=== PATIENT | female | born 1985 | race Caucasian/White ===

== ENCOUNTER 2016-10-29 16:07 | Observation (INO) ==
[2016-10-29] MEDS ORDERED: Ondansetron 4 MG/2 ML VIAL IVP ONE (16:11)
--- NOTE | 2016-10-29 16:27 | Emergency Department Note ---
Disposition Clinical Impression: Chest pain Qualifiers: Chest pain type: unspecified Qualified Code(s): R07.9 - Chest pain, unspecified Disposition: Admitted As Inpatient Condition: Good Time of Disposition: 18:47 General Adult HPI - General Chief complaint: ED Chest Pain Stated complaint: chest pressure Time Seen by Provider: 10/29/16 16:09 Source: patient, EMS Limitations: no limitations Nursing Notes Reviewed: Yes Vital Signs Reviewed: Yes - History of Present Illness HPI Narrative: This is a 30-year-old female with a past medical history of [id number] hypertension, thyroiditis, Type 1 Diabetes and the beginning of a new workup for possible pheochromocytoma. She reports to the emergency department today because she felt chest pressure while she was at home. She states that over the past 2 years she has had episodes of hypertensive spikes, hot flashes, headaches since the of her last son. She states that the symptoms have worsened significantly over the last 2 weeks which prompted her primary care physician to begin a workup for pheochromocytoma. However, today she had her worst episode. She states that this is the first time she has had chest pain from this. Pain Scale: 5 - Related Data Home Medications Medication Instructions Recorded Confirmed Levothyroxine Sodium 88 mcg PO 0630 10/29/16 10/29/16 Metformin HCl [Metformin HCl ER] 500 mg PO BID 10/29/16 10/29/16 Subcutaneous Insulin Pump [T:Slim] 30 - 80 unit MC DAILY PRN 10/29/16 10/29/16 Allergies Allergy/AdvReac Type Severity Reaction Status Date / Time Penicillins [PCN] Allergy Mild See Verified 10/31/16 04:26 Comments Cephalosporins Allergy Swelling Verified 10/29/16 19:06 of Lip/Tongue/Throat clindamycin Allergy Nausea Verified 10/29/16 19:06 doxycycline Allergy Nausea Verified 10/29/16 19:06 acetaminophen [From Tylenol] AdvReac See Verified 10/31/16 04:26 Comments Constitutional: Reports: weakness. 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 She seems very uncomfortable. - General Limitations: no limitations General appearance: alert - Head Head exam: atraumatic, normocephalic - Eye Eye exam: Present: EOMI. Absent: scleral icterus, conjunctival injection - ENT ENT exam: mucous membranes dry - Neck Neck exam: Present: trachea midline. Absent: tenderness, meningismus - Chest Chest inspection: Present: symmetric chest wall rise. Absent: tenderness, rash - Respiratory Respiratory exam: Present: normal lung sounds bilaterally. Absent: respiratory distress, wheezes, stridor - Cardiovascular Cardiovascular exam: Present: tachycardia (Went from a normal heart rate to tachycardia) - Abdominal Exam Abdominal exam: Present: soft, tenderness Abdominal tenderness: Present: diffuse, mild - Skin Skin exam: Present: warm, dry, intact Course - Reevaluation(s) Reevaluation #1: This is a 30-year-old female who presents to the emergency department with an episode of chest pain, flushing, hypertensive despite, and syncope. She was in the initial stages of getting a workup for pheochromocytoma. At this time, we performed an EKG, chest x-ray, obtained a CBC and BMP. Time: 17:13 Reevaluation #2: After speaking with the patient regarding whether to have her pheochromocytoma workup done outpatient, she states that she is "scared to go home". She prefers to be transferred to [facility] and be seen by her puller machine Dr. Sumanth Hernandez. I called the [facility] transfer center and was informed that they were on diversion and could not accept any patients. I spoke on the phone with the hospitalist there who stated that he recommended I keep her here at our facility overnight for observation. He did say that hopefully by tomorrow morning there will be a bed taken open up for her and that she could possibly be transferred at that time. I explained the situation with the patient, and she was satisfied with staying here tonight for observation. She is currently not having the blood pressure spikes, her blood pressure was 101/80, heart rate is 83, and she is currently not having any flushing. I think it is reasonable that she be observed in the hospital overnight, and the hospitalist Dr. Huerta and she agrees to the plan. Time: 18:47 Vital Signs Temperature 98.9 F 10/29/16 16:09 Pulse Rate 87 10/29/16 16:09 Respiratory Rate 20 10/29/16 16:09 Blood Pressure 134/103 10/29/16 16:09 O2 Sat by Pulse Oximetry 99 10/29/16 16:09 Temperature 98.5 F 10/31/16 11:55 Pulse Rate 65 10/31/16 11:55 Respiratory Rate 16 10/31/16 11:55 Blood Pressure 101/66 10/31/16 11:55 O2 Sat by Pulse Oximetry 98 10/31/16 11:55 Oxygen Delivery Oxygen Delivery Room Air Medical Decision Making - Lab Data Result diagrams: 10/30/16 03:54 10/30/16 03:54 Lab Results 10/29/16 10/29/16 10/29/16 Range/Units 17:06 17:06 17:06 WBC 10.2 (4.3-11.1) K/mcL RBC 4.36 (3.82-4.97) M/mcL Hgb 12.8 (11.5-15.4) g/dL Hct 37.9 (35.3-44.9) % MCV 86.9 (83.0-100.0) fL MCH 29.4 (28.0-33.3) pg MCHC 33.8 (31.6-35.5) g/dL RDW 12.7 (11.5-14.5) % Plt Count 338 (140-400) K/mcL MPV 9.3 L (9.4-12.4) fL Immature Gran % 0.3 (0-4) % Seg Neutrophils % 72.4 % Lymphocytes % 20.3 % Monocytes % 5.5 % Eosinophils % 1.1 % Basophils % 0.4 % Neutrophils # 7.4 (1.6-8.9) K/mcL Lymphocytes # 2.1 (0.6-4.6) K/mcL Monocytes # 0.6 (0.0-1.3) K/mcL Eosinophils # 0.1 (0.0-0.6) K/mcL Basophils # 0.0 (0.0-0.2) K/mcL Immature Plt Fraction 2.2 (1.1-6.1) % Sodium 141 (136-145) mEq/L Potassium 3.8 (3.5-4.5) mEq/L Chloride 108 (98-109) mEq/L Carbon Dioxide 26 (19-29) mEq/L BUN 11 (7-20) mg/dL Creatinine 0.84 (0.57-1.11) mg/dL Est GFR ( Amer) > 60 (> 60) Est GFR (Non-Af Amer) > 60 (> 60) BUN/Creatinine Ratio 13 (6-26) Glucose 97 (70-99) mg/dL Calculated Osmolality 291 (280-300) Calcium 9.9 (8.6-10.8) mg/dL Troponin I 0.00 (0-0.03) ng/mL - EKG Data EKG #1 EKG results narrative: 10/29/2016 16:15 Ventricular rate 87 bpm, SC interval 140 ms, QRS duration 83 ms, QT 342 ms, QTC 386 ms, normal axis Normal sinus rhythm with a ventricular rate of 87 bpm, there are no ST changes noted.
--- NOTE | 2016-10-29 17:08 | Emergency Department Note ---
START Narrative - START START: I examined this patient and my medical decision-making was reviewed with the PRINCIPAL RESEARCH ECONOMIST/PA/Advanced Practice Nurse/Resident Physician. I agree with the documented findings, disposition and treatment plan as described except to the extent set forth below. ED attending note: Patient seen with emergency medicine resident Dr REYES. We independently evaluated the patient. We independently had enuw-eo-rwyk contact with the patient. Please see a copy of his note for details of the history and physical, evaluation, management and disposition of this emergency Department patient. Briefly: A 22-year-old female insulin-dependent diabetic being cared for by the endocrine service the [facility] presents with a two-year history worsened over the past 14 days of headaches flushing chest pain palpitations. Patient is being worked up for suspected pheochromocytoma. She was about to give a urine metanephrine testing. When she had an episode today and cause recurrent by ambulance. Time when her blood pressure was elevated and her heart rate was up to about 133. However patient is currently asymptomatic at this time. Chest x-ray is otherwise negative and EKG shows no acute ischemic changes. Screening labs are being ordered. However patient and her at bedside state that they would like to be transferred to the [facility] for more definitive management. And we agreed. Awaiting results of labs and then initiate and follow through on transfer the [facility]. Disposition pending
[2016-10-29 17:14] LABS: Basophils % 0.4 %; Eosinophils # 0.1 K/mcL (0.0-0.6); Eosinophils % 1.1 %; Hematocrit 37.9 % (35.3-44.9); Hemoglobin 12.8 g/dL (11.5-15.4); Immature Granulocytes % 0.3 % (0-4); Immature Platelets 2.2 % (1.1-6.1); Lymphocytes # 2.1 K/mcL (0.6-4.6); Lymphocytes % 20.3 %; Mean Corpuscular HGB Conc 33.8 g/dL (31.6-35.5); Mean Corpuscular Hemoglobin 29.4 pg (28.0-33.3); Mean Corpuscular Volume 86.9 fL (83.0-100.0); Mean Platelet Volume 9.3 fL (9.4-12.4); Monocytes # 0.6 K/mcL (0.0-1.3); Monocytes % 5.5 %; Neutrophils # 7.4 K/mcL (1.6-8.9); Platelet Count 338 K/mcL (140-400); Red Blood Count 4.36 M/mcL (3.82-4.97); Red Cell Distribution Width 12.7 % (11.5-14.5); Segmented Neutrophils % 72.4 %
[2016-10-29 17:30] LABS: BUN/Creatinine Ratio 13 (6-26); Blood Urea Nitrogen 11 mg/dL (7-20); Calcium 9.9 mg/dL (8.6-10.8); Carbon Dioxide 26 mEq/L (19-29); Chloride 108 mEq/L (98-109); Glucose 97 mg/dL (70-99); Osmolality,Calculated 291 (280-300); Potassium 3.8 mEq/L (3.5-4.5); Sodium 141 mEq/L (136-145); eGFR For African Americans > 60 (> 60); eGFR For Non-African Americans > 60 (> 60)
--- NOTE | 2016-10-29 20:40 | Internal Med History&Physical ---
<PradipallaMina Vasquez - Last Filed: 10/29/16 20:37> Date of Encounter: 10/29/16 Time of Encounter: 19:30 Assessment and Plan (1) Syncope Current visit: Yes Status: Acute Mrs. bishop 22-year-old female had an episode of syncope after experiencing acute onset of left-sided crushing chest pain without radiation. She relates palpitations during this episode. She was standing and without stress at the time of this episode. She said that she had an immediate blackout and did not have any preceding visual symptoms or lightheadedness. She describes the recovery period as patchy and difficulty warming words but denies any abnormal body movements, biting of tongue or loss of bowel or bladder function. - She is currently being evaluated for a possible pheochromocytoma, with symptoms of occasional hypertension, diaphoresis, palpitations and migraine headaches. She has other risk factors including thyroid dysfunction, type 1 diabetes. - Significant family history of type 1 diabetes but no history of endocrine cancers in her family. Her possibilities for familial pheochromocytoma, MEN2 with the multiple other endocrine dysfunctions. - Patient states that she has an outpatient order for a 24-hour urine metanephrine and catecholamine tool kit. She follows up with an directional survey drafter at [facility] for her diabetes. For further workup should be best cared for with the continuity of her directional survey drafter, for evaluation and possible diagnosis of pheochromocytoma. - The patients syncopal episode would otherwise appear to be cardiac in nature given the acute onset with left-sided crushing chest pain and palpitations. There is possibility for arrhythmia that could be related to release of catecholamines or rhythm dysfunction. She has been stable on telemetry since admission and her troponin was 0.00. EKG demonstrates normal sinus rhythm, appropriate rate, axis and without ST elevation or depression. Chest x-ray does not demonstrate any acute process. Plan: - Continue cardiac monitoring - Troponins 2 - General medical floor - Patient will require follow-up with endocrinology. Qualifiers: Qualified Code(s): R55 - Syncope and collapse (2) Endocrine disorder, unspecified Current visit: Yes Status: Acute As discussed above. Currently undergoing evaluation for pheochromocytoma. (3) Type 1 diabetes Current visit: Yes Status: Acute Patient is type I diabetic who was diagnosed at the age of 17. She wears a insulin pump and has had difficulty in the last 2 weeks controlling her glucose levels. She states that she usually has pretty appropriate glucose control but has been spiking up into the 300s recently. She denies any changes to her insulin, dietary changes, illnesses or steroid use. Plan: -Continue insulin pump during inpatient care - Before meals and at bedtime glucose checks. Qualifiers: Diabetes mellitus complication status: without complication Qualified Code( s): E10.9 - Type 1 diabetes mellitus without complications (4) Hypothyroidism Current visit: Yes Status: Acute Known history of hypothyroidism, last TSH was elevated at 5.301 on 10/17/2016. Plan: - Continue his home dose levothyroxine. - Patient follows with directional survey drafter. Qualifiers: Hypothyroidism type: acquired Qualified Code(s): E03.9 - Hypothyroidism, unspecified Internal Medicine - H&P: HPI Chief complaint: passed out Admitted From: Emergency Dept Plans for Post Hospital Care: Home History of present illness: Ms. Bishop is a 30 year old female pmhx of type 1 diabetes, hypothyroidism, pregnancies 3 presented to the emergency department after passing out at home. She states that she was washing her dishes and was in her normal state of health without any stressful situations when she had crushing left-sided chest pain did not feel well with symptoms of nausea, palpitations, lightheadedness and then blacked out. The patient said this is witnessed by her who then called EMS who brought her to the emergency department. She states that she has interrupted memory of the events that took place after she fell. She mentions her described the period of time she was out with her eyes open with a glazed look not very responsive and then she came to making incoherent sentences. She does not remember much between the time she blacked out in the time she arrived at the emergency department. She is unsure if she hit her head, had any abnormal movements during the blackout episode. She denies biting her tongue or having loss of bladder function. She says over the last couple of years she has had headaches, occasional episodes of palpitations , occasional elevated blood pressures that were sporadic in nature. She also has the feeling of going through hot flashes where she becomes very diaphoretic. They have been intermittent over the last 2 years but more present in the last 14 days. The left-sided chest pain is new and occurred today prior to the episode of blacking out. She denies chest pain radiating to her neck and jaw or arm. She did not have any time to do any activity to find out if it exacerbated with activity. And she does not take any other medications for this chest pain. She denies ever having symptoms like this prior. She does say she has thyroid pains when she has hyperthyroid on her levothyroxine and she feels the pain in her right supraclavicular area. She was diagnosed with type 1 diabetes at the age of 17 and said that her mother was recently diagnosed with type 1 diabetes. They had genetic testing done on her daughter who is also likely to be a type I diabetic in the near future. She denies any other family history of thyroid dysfunction, endocrine cancers. Her father does not have any diabetes, cancer or other concerning factors. She was recently seen at her primary care provider's office and there was concern that she may have symptoms of a pheochromocytoma. She has not had any CT imaging of the abdomen and pelvis or with focus of the adrenal glands yet. She was supposed to chart picker a 24-hour urine metanephrine and catecholamine testing cats but she did not do that this week. She says that currently she no longer has chest pain, palpitations, headaches, diaphoresis or nausea. Her had requested transfer to [facility] where her directional survey drafter's. She sees an directional survey drafter for her type 1 diabetes and management of her insulin pump. She was supposed to schedule appointments with her directional survey drafter but has yet to do so this week. Past Med Surg Social Fam HX - Past Medical History Medical history: diabetes, thyroid disease Psychiatric history: no psych history - Social History Smoking Status: Light tobacco smoker Smokeless Tobacco Status: No Alcohol use: none Drug use: none - Family History Mother Daughter Living Status: Still Living Hx Family Endocrine Disorder: Yes (Type 1 diabetes adult onset) Daughter Living Status: Still Living Hx Family Endocrine Disorder: Yes (Prediabetic) Internal Medicine - H&P: Meds Levothyroxine Sodium 88 mcg PO 0630 10/29/16 [History] Metformin HCl [Metformin HCl ER] 500 mg PO BID 10/29/16 [History] Subcutaneous Insulin Pump [T:Slim] 30 - 80 unit MC DAILY PRN 10/29/16 [History] Allergies Cephalosporins Allergy (Verified 10/29/16 19:06) Swelling of Lip/Tongue/Throat clindamycin Allergy (Verified 10/29/16 19:06) Nausea doxycycline Allergy (Verified 10/29/16 19:06) Nausea Penicillins [PCN] Allergy (Verified 10/29/16 19:06) Swelling of Lip/Tongue/Throat All Systems PM: A 10-system review of systems was performed and is negative for pertinent findings except as documented above in the HPI. - Constitutional Constitutional: excessive sweating, no chills, no fever(s), no night sweats - EENT Eyes: no blurry vision, no change in vision, no discharge, no pain, no photophobia Ears: no ear discharge, no ear pain, no tinnitus Nose, mouth and throat: no dysphagia, no nasal discharge, no neck pain, no sore throat - Cardiovascular Cardiovascular ROS IM: chest pain, diaphoresis, palpitations, no dyspnea, no lightheadedness, no syncope - Respiratory Respiratory: no cough, no dyspnea, no wheezing, no excessive phlegm production - Gastrointestinal Gastrointestinal: nausea, no abdominal pain, no diarrhea, no hematemesis, no hematochezia, no melena, no vomiting - Genitourinary Genitourinary: no change in urinary stream, no dysuria, no flank pain, no hematuria - Musculoskeletal Musculoskeletal ROS IM: no numbness, no tingling - Integumentary Integumentary IM: no rash, no unusual bruising - Neurological Neurological ROS: headache(s), no confusion, no convulsions, no focal weakness, no numbness, no tingling, no tremor(s) - Hematologic/Lymphatic Hematologic/Lymphatic: no easy bruising - Constitutional Vitals: Temp Pulse Resp BP Pulse Ox 98.1 F 58 12 122/74 94 10/29/16 18:59 10/29/16 18:59 10/29/16 18:59 10/29/16 18:59 10/29/16 18:59 Exam: General: Patient alert, awake, oriented 3, interactive, in no acute distress HEENT: Normocephalic, atraumatic, pupils equal reactive to light, nasal cavity patent and open septum median position, oral mucosa moist, uvula midline, neck supple trachea midline no palpable lymphadenopathy, no thyromegaly. Chest: Symmetric bilateral correlating with respiratory effort, effort nonlabored. Cardiac: Regular rate and rhythm, grade 2/6 systolic ejection murmur. no bruits appreciated bilateral carotids, Radial pulses 2+ bilateral, posterior tibial and dorsal pedal pulses 2+ bilateral. Respiratory: Clear to auscultation all lung morrow Abdomen: Soft, nontender, positive bowel sounds, no palpable masses appreciated on examination Extremities: Symmetric bilateral, bilateral lower extremities without erythema or edema patient moving all 4 extremities spontaneously. Neurologic: No focal deficits appreciated on examination. Face symmetric, muscle strength symmetric bilateral upper and lower extremities. Internal Med - H&P Results - Labs CBC & Chem 7: 10/29/16 17:06 10/29/16 17:06 <Johan Wynne - Last Filed: 10/29/16 23:31> Date of Encounter: 10/29/16 Time of Encounter: 21:30 Internal Medicine - H&P: HPI History of present illness: Ms. Bishop is a 30 year old female All Systems PM: A 10-system review of systems was performed and is negative for pertinent findings except as documented above in the HPI. - Constitutional Vitals: Temp Pulse Resp BP Pulse Ox 98.1 F 58 12 122/74 94 10/29/16 18:59 10/29/16 18:59 10/29/16 18:59 10/29/16 18:59 10/29/16 18:59 Internal Med - H&P Results - Labs CBC & Chem 7: 10/29/16 17:06 10/29/16 17:06 Labs: Cardiac Enzymes 10/29/16 Range/Units 21:50 Troponin I 0.00 (0-0.03) ng/mL - Attending Attestation I examined this patient and my medical decision-making was reviewed with the resident physician, Dr. Mccurdy. I agree with the documented history of present illness, review of systems, past medical, surgical social and family histories and examination findings, disposition and treatment plan as described above except to any changes set forth below. 30-year-old female patient with history of type 1 diabetes mellitus, hypothyroidism who presented to the ER with complaints of an episode of left- sided chest pain with palpitations and syncope. Patient has been having severely elevated blood pressure recently and was recommended to follow up with endocrinology for workup of pheochromocytoma. She does have symptoms of excessive diaphoresis, headaches and elevated blood pressure. Presently, Patient is feeling much better and her blood pressure has improved. On examination, patient is awake and alert. Oriented 3. Heart sounds were normal. Breath sounds are normal. No abdominal tenderness. Urine test is negative Syncope: We will monitor with telemetry. Trend troponins. We will get CT scan of the abdomen and also check urine for metanephrines and catecholamines. Diabetes mellitus type 1: patient uses insulin pump which will be continued. Monitor blood sugars closely.
[2016-10-29] MEDS ORDERED: Naloxone 0.4 MG/ML INJ IVP PRN (21:15)
[2016-10-29] MEDS ORDERED: Acetaminophen 325 MG TABLET PO PRN (21:15)
[2016-10-29 22:15] LABS: Magnesium 1.8 mg/dL (1.6-2.6); Phosphorous 3.5 mg/dL (2.3-4.7)
[2016-10-29] MEDS ORDERED: *HR* Dextrose 50 % in Water (Syg) 50 ML SYRINGE IVP PRN (22:46)
[2016-10-29] MEDS ORDERED: Dextrose Gel 15 GM PO PRN ×2 (22:46)
[2016-10-29] MEDS ORDERED: D5% in Water 1,000 ML IVC PRN (22:46)
[2016-10-29 23:07] LABS: Bilirubin,Urine Negative (Negative); Blood,Urine Negative (Negative); Clarity,Urine Clear (Clear); Color,Urine Yellow (Yellow); Glucose,Urine (UA) >=1000 mg/dL (Normal); Ketones,Urine Negative (Negative); Leukocyte Esterase,Urine Negative (Negative); Nitrite,Urine Negative (Negative); Protein,Urine Negative (Neg-Trace); Specific Gravity,Urine 1.027 (1.010-1.025); Urobilinogen,Urine Normal (Normal)
[2016-10-30] MEDS: Pantoprazole 40 MG VIAL IVP SCH ×2 (00:30→08:13)
[2016-10-30 04:56] LABS: Basophils # 0.1 K/mcL (0.0-0.2); Basophils % 0.5 %; Eosinophils # 0.1 K/mcL (0.0-0.6); Eosinophils % 1.3 %; Hematocrit 34.5 % (35.3-44.9); Hemoglobin 11.5 g/dL (11.5-15.4); Immature Granulocytes % 0.3 % (0-4); Lymphocytes # 2.7 K/mcL (0.6-4.6); Lymphocytes % 26.5 %; Mean Corpuscular HGB Conc 33.3 g/dL (31.6-35.5); Mean Corpuscular Hemoglobin 29.6 pg (28.0-33.3); Mean Corpuscular Volume 88.9 fL (83.0-100.0); Mean Platelet Volume 10.5 fL (9.4-12.4); Monocytes # 0.6 K/mcL (0.0-1.3); Monocytes % 5.9 %; Neutrophils # 6.8 K/mcL (1.6-8.9); Platelet Count 248 K/mcL (140-400); Red Blood Count 3.88 M/mcL (3.82-4.97); Red Cell Distribution Width 13.2 % (11.5-14.5); Segmented Neutrophils % 65.5 %
[2016-10-30 05:10] LABS: Alanine Aminotransferase 13 Units/L (0-55); Albumin 3.3 g/dL (3.5-5.0); Albumin/Globulin Ratio 1.2 (1.1-2.2); Alkaline Phosphatase 99 Units/L (38-126); Aspartate Amino Transferase 12 Units/L (5-34); BUN/Creatinine Ratio 14 (6-26); Bilirubin,Total 0.6 mg/dL (0.2-1.2); Blood Urea Nitrogen 12 mg/dL (7-20); Calcium 8.6 mg/dL (8.6-10.8); Carbon Dioxide 26 mEq/L (19-29); Chloride 106 mEq/L (98-109); Globulin 2.8 g/dL (2.4-3.5); Glucose 229 mg/dL (70-99); Osmolality,Calculated 289 (280-300); Potassium 4.1 mEq/L (3.5-4.5); Sodium 136 mEq/L (136-145); Total Protein 6.1 g/dL (6.0-8.3); eGFR For African Americans > 60 (> 60); eGFR For Non-African Americans > 60 (> 60)
--- NOTE | 2016-10-30 15:28 | Internal Med Progress Note ---
Date of Encounter: 10/30/16 Time of Encounter: 12:30 - Assessment and plan (1) Syncope Current Visit: Yes Status: Acute Assessment and plan: Unclear causation at this time. Earlier this morning, patient had an episode where she began to feel lightheaded and dizzy. She felt as if her heart rate was increased. She was laying down supine at that time and then she stated that she tried to make herself feel better by pacing around her room. Episode was approximately 10 minutes and self limiting without intervention. Unable to review telemetry-artifact noted. She had an unremarkable Holter monitor in June 2015. We will observe her overnight and monitor telemetry. She has been instructed to her call light and try to remain still if possible if she has another episode. Chest x-ray negative. Abdominal CT negative. Urinalysis negative. She is being worked up by her primary care provider for pheochromocytoma. We will observe her overnight and monitor her telemetry and her symptoms. She will need to follow-up with endocrinology outpatient. ITS Impressions Chest X-Ray 10/29/16 16:11 IMPRESSION: No acute process. D/ / Arnold Yun MD / Arnold Yun MD Interpreting Provider: Arnold Yun MD Abdomen CT 10/29/16 21:15 IMPRESSION: No adrenal nodule or evidence for acute process. D/ / Vineet Stovall MD / Vineet Stovall MD Interpreting Provider: Vineet Stovall MD (2) Palpitations Current Visit: Yes Status: Chronic Assessment and plan: Appears acute on chronic. In review for chart, patient had a Holter monitor in June 2015 that revealed normal sinus rhythm with rare PACs. No PVCs or arrhythmias noted. Patient had an episode right around noon that lasted approximately 10 minutes where she felt as if her heart was beating quickly and she got up and walked around the room. I have reviewed her telemetry from this timeframe and unfortunately it is mostly obscured with artifact. There are a few traces of normal sinus rhythm but it is essentially artifact. We will keep her on telemetry and monitor. 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. Also being worked up by her primary care provider for suspected pheochromocytoma which can have symptoms including headache, sweating, elevated heart rate, elevated blood pressure at times. Abdominal CT negative for any abnormalities. ITS Impressions Abdomen CT 10/29/16 21:15 IMPRESSION: No adrenal nodule or evidence for acute process. D/ / Vineet Stovall MD / Vineet Stovall MD Interpreting Provider: Vineet Stovall MD (4) Type 1 diabetes Current Visit: Yes Status: Chronic Assessment and plan: Appears well controlled, no recent A1c, will check with a.m. labs. Continue home insulin pump (5) Hypothyroidism Current Visit: Yes Status: Chronic Assessment and plan: TSH from 2 weeks ago slightly elevated, will recheck along with T3 and T4 Qualifiers: Hypothyroidism type: acquired Qualified Code(s): E03.9 - Hypothyroidism, unspecified - Subjective Interval history: Patient seen and examined. On examination, patient resting supine in bed with her eyes closed. Patient stating approximately 20 minutes prior to my presentation into the room that she was laying down and became severely lightheaded so she stood up and tried to walk around her room. She stated this episode lasted approximately 10 minutes and during this time, her heart rate was increased, she denied any sweating. She felt as if she was dizzy and felt as if the room was spinning. - Constitutional Vitals: Temp Pulse Resp BP Pulse Ox 97.8 F 65 16 122/76 99 10/30/16 11:01 10/30/16 11:01 10/30/16 11:01 10/30/16 11:01 10/30/16 11:01 General appearance: Present: A&O X 3, pleasant, no acute distress, answers questions appropriately - Head Head exam: Present: atraumatic, normocephalic - Eye Eye exam: Present: PERRL, conjuntiva pink, sclera anicteric Pupils: Present: PERRL - Neck Neck exam general surgery: Present: supple, trachea midline. Absent: lymphadenopathy - Respiratory Respiratory exam: Present: CTAB. Absent: accessory muscle use, rales, respiratory distress, rhonchi, wheezes - Cardiovascular Cardiovascular exam: Present: RRR, +S1, +S2. Absent: diastolic murmur, gallop, rubs, systolic murmur - GI/Abdominal GI/Abdominal exam: Present: normal bowel sounds, soft, no peritoneal signs. Absent: distended, tenderness - Extremities Exam Extremities exam: Present: warm, radial pulses palpable and symetrical. Absent : calf tenderness, cyanotic, pedal edema - Neurological Exam Neurological exam: Present: alert, CN II-XII intact, normal gait, oriented X3, no focal deficits, strengths equal and symetr throughout. Absent: pronater drift, facial droop, speech deficit - Skin Skin exam: Present: dry, intact, pallor, warm Internal Medicine: Result - Labs CBC & Chem 7: 10/30/16 03:54 10/30/16 03:54 Labs: Short CBC 10/30/16 Range/Units 03:54 WBC 10.3 (4.3-11.1) K/mcL Hgb 11.5 (11.5-15.4) g/dL Hct 34.5 L (35.3-44.9) % Plt Count 248 (140-400) K/mcL Neutrophils # 6.8 (1.6-8.9) K/mcL BMP 10/30/16 03:54 Sodium 136 Potassium 4.1 Chloride 106 Carbon Dioxide 26 BUN 12 Creatinine 0.85 Glucose 229 H Calcium 8.6 Cardiac Enzymes 10/29/16 10/30/16 Range/Units 21:50 03:54 Troponin I 0.00 0.00 (0-0.03) ng/mL Liver Function 10/30/16 Range/Units 03:54 Total Bilirubin 0.6 (0.2-1.2) mg/dL AST 12 (5-34) Units/L ALT 13 (0-55) Units/L Alkaline Phosphatase 99 (38-126) Units/L Albumin 3.3 L (3.5-5.0) g/dL Urine 10/29/16 Range/Units 22:35 Urine Color Yellow (Yellow) Urine Clarity Clear (Clear) Urine pH 6.0 (5.0-8.0) pH Units Ur Specific [place] 1.027 H (1.010-1.025) Urine Protein Negative (Neg-Trace) mg/dL Urine Glucose (UA) >=1000 H (Normal) mg/dL - Impressions Impressions Abdomen CT 10/29/16 21:15 IMPRESSION: No adrenal nodule or evidence for acute process. D/ / Vineet Stovall MD / Vineet Stovall MD Interpreting Provider: Vineet Stovall MD Consult Discharge Plan - Plan Referrals: Lazara Matthews CNP [Primary Care Provider] - 11/05/16 8:45 am (Nov 07 Appointment will be addressed at this time visit)
--- NOTE | 2016-10-30 17:42 | Electrocardiograph Report ---
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
[2016-10-31] MEDS ORDERED: Ibuprofen 400 MG TABLET PO PRN (04:05)
[2016-10-31 04:35] LABS: Hemoglobin A1C 7.4 %
[2016-10-31 05:02] LABS: Thyroid Stimulating Hormone 6.943 mcIU/mL (0.350-4.840); Triiodothyronine (T3) Free 2.02 pg/mL (1.71-3.71)
[2016-10-31] MEDS: Pantoprazole 40 MG VIAL IVP SCH (08:56)
[2016-10-31 12:00] VITALS: BP 101/66
--- NOTE | 2016-10-31 12:51 | Cardiology Consult Note ---
Date of Encounter: 10/31/16 Time of Encounter: 12:49 Assessment and Plan (1) Lightheadedness Current Visit: Yes Status: Acute 30 year old with lightheadedness. Tells me she is not sure if she passed out. No obvious cardiac etiology - TTE normal LV function, no significant valve issues. Of note, BP somewhat marginal. She reports symptoms occur with standing or periods of standing. ? component of orthostatic hypotension. We discussed importance of aggressive hydrartion with water/liberal sodium intake and risk factor modification. No arrhythmias noted, but we could consider outpatient Holter monitor. It does not appear that any further inpatient cardiac testing is necessary at this time. Please call if any questions or concerns. Discussion w patient/family: The assessment and plan as outlined above was discussed with the patient and/or family members who expressed understanding and agreement. All questions were answered. Thank you for involving us in the care of your patient. Please call with any questions. History of Present Illness Consult date: 10/31/16 Requesting physician: Janeth Mukherjee Consult reason: Lightheadedness Chief complaint: Lightheadedness History of present illness: Ms. Bishop is a 30 year old female with thyroid disease and DM I. Apparently, reported syncope prior to admission, but tells me she is unsure if she passed out. Reports intermittent episodes of tachycardia and lightheadedness at home. Occurs at rest, but seem to occur more often with standing or activity. No chest pain reported. Seems comfortable during our encounter. TTE - Normal LVEF, possible mild MV prolapse, mild MR. ECG - sinus rhythm. Telemetry - no arrhythmias. Past Med Surg Social Fam HX - Past Medical History Medical history: diabetes, thyroid disease Psychiatric history: no psych history - Social History Smoking Status: Light tobacco smoker Smokeless Tobacco Status: No Alcohol use: none Drug use: none - Family History Mother Daughter Living Status: Still Living Hx Family Endocrine Disorder: Yes (Type 1 diabetes adult onset) Daughter Living Status: Still Living Hx Family Endocrine Disorder: Yes (Prediabetic) Medications and Allergies Levothyroxine Sodium 88 mcg PO 0630 10/29/16 [History] Metformin HCl [Metformin HCl ER] 500 mg PO BID 10/29/16 [History] Subcutaneous Insulin Pump [T:Slim] 30 - 80 unit MC DAILY PRN 10/29/16 [History] Allergies Penicillins [PCN] Allergy (Mild, Verified 10/31/16 04:26) See Comments Cephalosporins Allergy (Verified 10/29/16 19:06) Swelling of Lip/Tongue/Throat clindamycin Allergy (Verified 10/29/16 19:06) Nausea doxycycline Allergy (Verified 10/29/16 19:06) Nausea acetaminophen [From Tylenol] Adverse Reaction (Verified 10/31/16 04:26) See Comments Patient stated that tylenol intereferes with her insulin pump readings. All Systems Review: A 10-system review of systems was performed and is negative for pertinent findings except as documented above in the HPI. - Constitutional Constitutional: headache(s) - Cardiovascular Cardiovascular: as per HPI, lightheadedness, palpitations Physical Examination Vital Signs, Last 4 Hours Temp Pulse Resp BP Pulse Ox 10/31/16 11:55 98.5 F 65 16 101/66 98 General: Conversant, No Apparent Distress HEENT: Atraumatic, Normocephaly, Mucus Membranes Moist Neck: No JVD, Normal carotid pulses Cardiac: Reg Rate and Rhythm, Normal S1 and S2, No Murmur Lungs: Normal Breath Sounds, No Wheeze, Rales, Rhonchi Neuro: Alert and responsive, No focal deficits noted Abdomen: Soft, Non-Tender Skin: No rashes noted on visualized skin Musculoskeletal: No Chest Wall Tenderness Extremities: No Clubbing, No Cyanosis, No Edema Results 10/30/16 03:54 10/30/16 03:54 Lab Results 10/31/16 03:55 TSH 6.943 H - Imaging and Cardiology Echo: report reviewed - EKG Interpretation EKG results cardiology: personally reviewed Consult Discharge Plan - Plan Referrals: Lazara Matthews CNP [Primary Care Provider] - 11/05/16 8:45 am (Nov 07 Appointment will be addressed at this time visit)
--- NOTE | 2016-10-31 13:58 | Electrocardiograph Report ---
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
--- NOTE | 2016-10-31 14:17 | Electrocardiograph Report ---
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
--- NOTE | 2016-10-31 14:48 | Discharge Summary ---
Date of Encounter: 10/31/16 Time of Encounter: 13:00 - Discharge Diagnosis (1) Syncope Priority: Primary Status: Acute Comments: Unclear causation at this time but after this admission, cardiac etiology appears less likely. Patient had a couple episodes while admitted- no changes noted on telemetry. She had an unremarkable Holter monitor in June 2015. Chest x-ray negative. Abdominal CT negative. Urinalysis negative. She is being worked up by her primary care provider for pheochromocytoma. She will need to follow-up with endocrinology outpatient and states that she will call [facility] with an appt today after being discharged. (2) Palpitations Priority: Secondary Status: Chronic Comments: Appears acute on chronic. In review for chart, patient had a Holter monitor in June 2015 that revealed normal sinus rhythm with rare PACs. No PVCs or arrhythmias noted. Patient had a couple episodes while admitted with no abnormalities noted on telemetry. Cardiology was brought on board and cleared her for outpatient follow-up. 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 Also being worked up by her primary care provider for suspected pheochromocytoma which can have symptoms including headache, sweating, elevated heart rate, elevated blood pressure at times. Abdominal CT negative for any abnormalities. ITS Impressions Abdomen CT 10/29/16 21:15 IMPRESSION: No adrenal nodule or evidence for acute process. D/ / Vineet Stovall MD / Vineet Stovall MD Interpreting Provider: Vineet Stovall MD (4) Type 1 diabetes Priority: Secondary Status: Chronic Comments: Relatively well controlled with an A1c of 7.4%. Continue home insulin pump and follow up outpatient. (5) Hypothyroidism Priority: Secondary Status: Chronic Comments: TSH slightly elevated, but T3 and T4 levels are normal. Subclinical hypothyroidism not likely causing her symptoms. Qualifiers: Hypothyroidism type: acquired Qualified Code(s): E03.9 - Hypothyroidism, unspecified - Discharge Medications Home Medications: Levothyroxine Sodium 88 mcg PO 0630 10/29/16 [History] Metformin HCl [Metformin HCl ER] 500 mg PO BID 10/29/16 [History] Subcutaneous Insulin Pump [T:Slim] 30 - 80 unit MC DAILY PRN 10/29/16 [History] Allergies/Adverse Reactions: Allergies Penicillins [PCN] Allergy (Mild, Verified 10/31/16 04:26) See Comments Cephalosporins Allergy (Verified 10/29/16 19:06) Swelling of Lip/Tongue/Throat clindamycin Allergy (Verified 10/29/16 19:06) Nausea doxycycline Allergy (Verified 10/29/16 19:06) Nausea acetaminophen [From Tylenol] Adverse Reaction (Verified 10/31/16 04:26) See Comments Patient stated that tylenol intereferes with her insulin pump readings. Procedures/tests Complete & Pending: Procedures Performed prior 72 hours Category Date Time Status CT abdomen w iv no oral [CT] Routine Cat Scan 10/29/16 21:15 Completed ECG 12 lead ECG [ECG] AM 0600 Y 10/30/16 06:00 Ordered ECG 12 lead ECG [ECG] Routine Y 10/31/16 03:29 Completed EKG [ECG 12 lead ECG] [ECG] Routine Y 10/30/16 15:25 Completed EV echocardiogram Routine Y 10/31/16 08:14 Completed Date of admission: 10/29/16 18:41 Primary care physician: Lazara Matthews CNP Consults: 10/31/16 11:15 Consult to Cardiology [CONS] Routine Comment: Consulting Provider: Cardiology Sharron Reason for Consult: pt here with palpitations and syncope. echo revealing MVP. please eval and advise. had holter in past- unremarkable with infrequent pvcs. Call Completed: No Discharging clinician: Janeth Mukherjee Anticipated date of discharge: 10/31/16 - Patient Status Disposition: Home, Self-Care Condition: Good Functional capacity at discharge: independent ambulation Overall status at discharge: patient is back to baseline - Discharge Instructions Follow Up With: Lazara Matthews CNP [Primary Care Provider] - 11/05/16 8:45 am (Nov 07 Appointment will be addressed at this time visit) Ilir Acosta [Non-Partnered Physician] - Additional Instructions: Follow-up with your primary care provider as scheduled, make appointment with operative supervisor as soon as possible. - Diet and Activity Activity: increase activity as tolerated, return to work once cleared by your PCP/specialist Diet: diabetic diet Hospital course: Ms. Bishop is a 30 year old female with past medical history of type 1 diabetes, hypothyroidism, pregnancies 3. Patient presented to the emergency department chief complaint syncope at home. Patient stating she was washing her dishes and was in her normal state of health without any stressful situations when she had crushing left-sided chest pain, did not feel well, had nausea, palpitations , lightheadedness and then she reportedly blacked out. Patient stated this was witnessed by her who then called EMS and brought her to the emergency department. Patient is amnestic to the events after her fall. Patient's described the period of time that she was out of it with her eyes open with a glazed look and she was not very responsive and she started to make incoherent sentences. Patient stating over the last several years, she has had headaches, up a occasional episodes of palpitations, occasional elevated blood pressure readings that were sporadic in nature. Patient also feels as if she is going through hot flashes where she becomes very diaphoretic. While the symptoms have been intermittent in her mid noted last 2 years, they were much more present over the last 2 weeks prior to presentation. Patient's primary care provider has recently started a workup for pheochromocytoma. Chest x-ray negative. Abdominal CT negative for acute processes. Patient was admitted to the hospitalist service for further evaluation and management. Patient had a couple more episodes where she began to feel lightheaded and dizzy and felt palpitations while admitted. No changes were noted on telemetry. Echocardiogram was performed which revealed an ejection fraction of 60%, normal diastolic function, but did reveal mild MR with possible prolapse of mitral valve. Cardiology was brought on board who surmised that this abnormality is not likely contributing to her symptoms. Cardiology recommended liberal fluid and sodium intake and cleared her for outpatient follow-up. Regarding her thyroid levels, TSH was slightly elevated but free T3 and T4 both normal suggestive of subclinical hypothyroidism not likely contributing to her symptoms. Diabetes was controlled with an A1c of 7.4%. Urinalysis negative. Patient tolerated a regular diet while admitted. Patient had a Holter monitor in June 2015 that revealed normal sinus rhythm with rare PACs. No PVCs or arrhythmias were noted at that time. Cardiac etiology for episodes less likely and essentially ruled out during this admission. Another possibility of the symptoms could be consistent with uncontrolled anxiety. During this admission, patient was extremely verbose and was perseverating on the survival rates of her ailments. Patient stating that when she knew it was hyperthyroidism, she knew that once her thyroid was normal that her anxiety would go away. She then fixated on possible heart failure, then she fixated on her family history of mitral valve prolapse. She stated that people in her family do not live with their heart issues and that they " quickly." She then focused on pheochromocytoma and stated that she knows that it has a very low survival rate. She was continually speak of mortality and her concern for her own mortality. Even with these persistent conversations, patient denied that she had any anxiety issues. Of course, anxiety attacks would be a diagnosis of exclusion once other issues have been ruled out. Patient stating that she follows with endocrinology at [facility] and states that she was given a call to reschedule an appointment upon being discharged today. She states that she missed her appointment 2 days prior to this presentation. She was discharged home in stable condition with close outpatient follow-up recommended. ITS Impressions Chest X-Ray 10/29/16 16:11 IMPRESSION: No acute process. D/ / Arnold Yun MD / Arnold Yun MD Interpreting Provider: Arnold Yun MD Abdomen CT 10/29/16 21:15 IMPRESSION: No adrenal nodule or evidence for acute process. D/ / Vineet Stovall MD / Vineet Stovall MD Interpreting Provider: Vineet Stovall MD Echocardiogram impressions: LVEF 60%. Normal left ventricular size and systolic function. Normal diastolic function of the left ventricle. Normal right ventricular size and function. Mild mitral regurgitation. Possible mild prolapsing of the posterior mitral valve leaflet. No pulmonary hypertension. - Time Spent with Patient Total time spent providing and/or coordinating discharge services: - Constitutional Vitals: Temp Pulse Resp BP Pulse Ox 98.5 F 65 16 101/66 98 10/31/16 11:55 10/31/16 11:55 10/31/16 11:55 10/31/16 11:55 10/31/16 11:55 General appearance: Present: A&O X 3, pleasant, no acute distress, answers questions appropriately - Head Head exam: Present: atraumatic, normocephalic - Eye Eye exam: Present: PERRL, conjuntiva pink, sclera anicteric Pupils: Present: PERRL - Neck Neck exam general surgery: Present: supple, trachea midline. Absent: lymphadenopathy - Respiratory Respiratory exam: Present: CTAB. Absent: accessory muscle use, rales, respiratory distress, rhonchi, wheezes - Cardiovascular Cardiovascular exam: Present: RRR, +S1, +S2. Absent: diastolic murmur, gallop, rubs, systolic murmur - GI/Abdominal GI/Abdominal exam: Present: normal bowel sounds, soft, no peritoneal signs. Absent: distended, tenderness - Extremities Exam Extremities exam: Present: warm, radial pulses palpable and symetrical. Absent : calf tenderness, cyanotic, pedal edema - Neurological Exam Neurological exam: Present: alert, CN II-XII intact, normal gait, oriented X3, no focal deficits, strengths equal and symetr throughout. Absent: pronater drift, facial droop, speech deficit - Psychiatric Psychiatric exam: Present: anxious. Absent: suicidal ideation - Expanded Psychiatric Exam Focused psych exam: Present: perseverating, pressured speech, psychomotor agitation, restlessness - Skin Skin exam: Present: dry, intact, normal color, warm
[2016-11-01 13:58] LABS: Metanephrine, Plasma 0.18 nmol/L (0.00-0.49)
[2016-11-05 07:47] LABS: Urine Creatinine mg/d 1131 mg/d (700-1600)
[2016-11-05 07:48] LABS: Urine Collection Duration 24 hr; Urine Collection Volume 1616 mL
== END 2016-10-31 15:55 | disposition home or self-care (01) ==
LOC: EMEROO 16:07 → 3BNU 16:07 → SUATTDRO 18:41 → 3BNU 18:49
PROVIDERS: ADMIT Registered Nurse; ATTEND Nurse Practitioner Family